=== PATIENT | male | born 1985 | race Caucasian/White ===

== ENCOUNTER 2022-11-13 19:03 | Emergency (ER) | payer SELFPAY ==
[~2022-11-13] VITALS: Ht 180.3 cm; Wt 77.1 kg
[2022-11-13] MEDS ORDERED: PREDNISONE50 MG PO (20:47)
[2022-11-13] MEDS ORDERED: ANTIFUNGAL113 GM T (20:47)
== END 2022-11-13 21:08 | disposition home or self-care (01) ==
LOC: ED 19:03 → EDBD 19:13 → ED 19:13 → EDSEX 19:13 → ED 21:08
DX: B35.6 Tinea cruris (principal); M25.561 Pain in right knee; M79.605 Pain in left leg; M79.602 Pain in left arm; M79.672 Pain in left foot; Z88.0 Allergy status to penicillin; F17.290 Nicotine dependence, other tobacco product, uncomplicated

== ENCOUNTER 2022-11-14 00:18 | Emergency (ER) | payer SELFPAY ==
[~2022-11-14] VITALS: Ht 180.3 cm; Wt 77.1 kg
[~2022-11-14 00:18] MED LIST: ANTIFUNGAL113 GM T; PREDNISONE50 MG PO
[2022-11-14 01:09] LABS: BASO # 0.1 10*3/uL (0.0-0.1); BASO % 0.5 % (0.0-1.0); EOS # 0.3 10*3/uL (0.0-0.4); EOS % 1.8 % (1.0-4.0); HEMATOCRIT 44.1 % (42.0-52.0); LYMPH # 2.5 10*3/uL (1.3-4.4); LYMPH % 18.3 % (27.0-41.0); MEAN CELL VOLUME 95.5 fl (80.0-94.0); MEAN CORPUSCULAR HGB 32.5 pg (27.0-31.0); MEAN PLATELET VOLUME 10.7 fl (9.6-12.3); MONO % 7.6 % (3.0-9.0); NEUT # 9.8 10*3/uL (2.3-7.9); NEUT % 71.4 % (47.0-73.0); PLATELET COUNT AUTOMATED 262 10*3/uL (130-400); RED BLOOD COUNT 4.62 10*6/uL (4.50-5.90); RED CELL DISTRI WIDTH 12.3 % (0-14.5); WHITE BLOOD COUNT 13.7 10*3/uL (4.8-10.8)
[2022-11-14 01:21] LABS: ACT PARTIAL THROMBO TIME 27.6 SECONDS (20.0-32.1); INTERNATIONAL NORM RATIO 1.2 (2.0-3.5)
[2022-11-14 01:31] LABS: ALKALINE PHOSPHATASE 57 U/L (46-116); BUN 12 mg/dl (9-23); CHLORIDE 106 mmol/L (98-107); CPK 372 U/L (34-171); LIPASE 31 U/L (12-53); POTASSIUM 3.8 mmol/L (3.4-5.1); SGPT/ALT 49 U/L (10-49); TOTAL PROTEIN 7.6 gm/dL (6.0-8.0)
[2022-11-14 01:33] LABS: ETHYL ALCOHOL < 3.0 mg/dl (<3)
[2022-11-14 01:35] LABS: URINE AMPHETAMINES Negative (1000ng/ml); URINE BARBITURATES Negative (200ng/ml); URINE BENZODIAZEPINES Negative (200ng/ml); URINE CANNABINOIDS (THC) Positive (50ng/ml); URINE COCAINE Negative (300ng/ml); URINE METHADONE Negative (300ng/ml); URINE OPIATES Negative (300ng/ml); URINE PHENCYCLIDINE Negative (25ng/ml)
== END 2022-11-14 01:55 | disposition home or self-care (01) ==
LOC: ED 00:18 → EDSEX 00:21 → ED 01:55
PROVIDERS: Internal Medicine
DX: T78.40XA Allergy, unspecified, initial encounter (principal); Z88.0 Allergy status to penicillin; X58.XXXA Exposure to other specified factors, initial encounter; Z79.899 Other long term (current) drug therapy; F17.290 Nicotine dependence, other tobacco product, uncomplicated

== ENCOUNTER 2022-11-15 00:03 | Emergency (ER) | payer SELFPAY ==
[~2022-11-15] VITALS: Wt 90.7 kg
[2022-11-15 00:26] LABS: BASO # 0.1 10*3/uL (0.0-0.1); BASO % 0.7 % (0.0-1.0); EOS # 0.3 10*3/uL (0.0-0.4); EOS % 3.2 % (1.0-4.0); HEMATOCRIT 43.8 % (42.0-52.0); LYMPH # 2.3 10*3/uL (1.3-4.4); LYMPH % 24.4 % (27.0-41.0); MEAN CELL VOLUME 96.1 fl (80.0-94.0); MEAN CORPUSCULAR HGB 32.5 pg (27.0-31.0); MEAN CORPUSCULAR HGB CONC 33.8 g/dl (33.0-37.0); MEAN PLATELET VOLUME 10.4 fl (9.6-12.3); MONO # 0.8 10*3/uL (0.1-1.0); MONO % 8.9 % (3.0-9.0); NEUT # 5.9 10*3/uL (2.3-7.9); NEUT % 62.6 % (47.0-73.0); PLATELET COUNT AUTOMATED 269 10*3/uL (130-400); RED BLOOD COUNT 4.56 10*6/uL (4.50-5.90); RED CELL DISTRI WIDTH 12.5 % (0-14.5); WHITE BLOOD COUNT 9.5 10*3/uL (4.8-10.8)
[2022-11-15 00:38] LABS: ACT PARTIAL THROMBO TIME 28.9 SECONDS (20.0-32.1); INTERNATIONAL NORM RATIO 1.2 (2.0-3.5)
[2022-11-15 00:46] LABS: ALKALINE PHOSPHATASE 58 U/L (46-116); BUN 12 mg/dl (9-23); CHLORIDE 106 mmol/L (98-107); LIPASE 34 U/L (12-53); POTASSIUM 3.9 mmol/L (3.4-5.1); SGPT/ALT 39 U/L (10-49); TOTAL PROTEIN 7.3 gm/dL (6.0-8.0)
== END 2022-11-15 02:00 | disposition home or self-care (01) ==
LOC: ED 00:03
PROVIDERS: Internal Medicine
DX: R11.2 Nausea with vomiting, unspecified (principal); R19.7 Diarrhea, unspecified; T50.905A Adverse effect of unspecified drugs, medicaments and biological substances, initial encounter; Z88.0 Allergy status to penicillin; F17.290 Nicotine dependence, other tobacco product, uncomplicated; Y92.89 Other specified places as the place of occurrence of the external cause

== ENCOUNTER 2022-11-15 23:01 | Emergency (ER) | payer SELFPAY ==
[~2022-11-15] VITALS: Ht 165.1 cm; Wt 56.7 kg
[2022-11-15 23:29] LABS: BASO % 0.4 % (0.0-1.0); EOS # 0.1 10*3/uL (0.0-0.4); EOS % 1.1 % (1.0-4.0); HEMATOCRIT 41.5 % (42.0-52.0); LYMPH % 10.7 % (27.0-41.0); MEAN CELL VOLUME 96.3 fl (80.0-94.0); MEAN CORPUSCULAR HGB CONC 33.3 g/dl (33.0-37.0); MEAN PLATELET VOLUME 10.3 fl (9.6-12.3); MONO # 0.9 10*3/uL (0.1-1.0); MONO % 10.1 % (3.0-9.0); NEUT # 7.1 10*3/uL (2.3-7.9); NEUT % 77.4 % (47.0-73.0); PLATELET COUNT AUTOMATED 217 10*3/uL (130-400); RED BLOOD COUNT 4.31 10*6/uL (4.50-5.90); RED CELL DISTRI WIDTH 12.2 % (0-14.5); WHITE BLOOD COUNT 9.2 10*3/uL (4.8-10.8)
[2022-11-15 23:41] LABS: ACT PARTIAL THROMBO TIME 28.3 SECONDS (20.0-32.1); INTERNATIONAL NORM RATIO 1.2 (2.0-3.5)
[2022-11-15 23:51] LABS: ALKALINE PHOSPHATASE 58 U/L (46-116); BUN 12 mg/dl (9-23); CHLORIDE 103 mmol/L (98-107); LIPASE 28 U/L (12-53); POTASSIUM 3.7 mmol/L (3.4-5.1); SGPT/ALT 32 U/L (10-49); TOTAL PROTEIN 7.4 gm/dL (6.0-8.0)
== END 2022-11-16 00:18 | disposition home or self-care (01) ==
LOC: ED 23:01
PROVIDERS: Internal Medicine
DX: Z76.5 Malingerer [conscious simulation] (principal); Z88.0 Allergy status to penicillin; Z79.899 Other long term (current) drug therapy